=== PATIENT | female | born 1965 | race African-American/Black ===

== ENCOUNTER 2016-12-01 21:43 | Emergency (ER) | payer MEDICARE, OTHER ==
[2016-12-01 21:22] LABS: BASOPHILS 0.5 %; BASOPHILS ABSOLUTE 0.04 10/3/uL (0.0-0.16); EOSINOPHILS 2.2 %; EOSINOPHILS ABSOLUTE 0.17 10/3/uL (0.0-0.53); HEMOGLOBIN 11.1 g/dL (12.0-16.0); IMMATURE GRANULOCYTES 0.3 %; IMMATURE GRANULOCYTES ABSOLUTE 0.02 10/3/uL (0.0-0.11); LYMPHOCYTES ABSOLUTE 3.34 10/3/uL (0.67-4.30); MANUAL DIFF NO %; MEAN CORPUS HGB CONC 34.7 g/dL (32.0-36.0); MEAN CORPUSCULAR HEMOGLOB 31.4 pg (26.0-34.0); MEAN CORPUSCULAR VOLUME 90.7 fL (80-100); MEAN PLATELET VOLUME 8.3 fL (9.2-13.0); MONOCYTES ABSOLUTE 0.62 10/3/uL (0.21-1.20); NEUTROPHILS ABSOLUTE 3.58 10/3/uL (2.02-8.40); PLATELET COUNT 258 10/3/uL (150-400); RBC DISTRIBUTION WIDTH 13.2 % (12.0-16.0); RED CELL COUNT 3.53 10/6/uL (4.0-5.6); WHITE BLOOD CELLS 7.8 10/3/uL (4.5-10.5)
[2016-12-01 21:29] LABS: INTERNATIONAL NORMAL RATI 1.1 UNITS (-); PARTIAL THROMBO TIME 25.1 SEC (22.5-37.2); PROTIME (NOT ORD) 13.8 SEC (12.0-14.5)
[2016-12-01 21:36] LABS: INFLUENZA A SCREEN NEGATIVE (NEGATIVE); INFLUENZA B SCREEN NEGATIVE (NEGATIVE)
[2016-12-01 21:37] LABS: ALBUMIN 4.2 G/DL (3.5-5.0); ALKALINE PHOSPHATASE 64 U/L (45-117); SGOT(AST) 23 U/L (5-40); SGPT(ALT) 52 U/L (5-65); TOTAL BILIRUBIN 0.2 MG/DL (0-1.2); TOTAL PROTEIN 7.4 G/DL (6.0-8.5)
[2016-12-01 21:38] LABS: DIRECT BILIRUBIN < 0.1 MG/DL (0.0-0.4); INDIRECT BILIRUBIN(NOT ORDER) 0.1 MG/DL (0.1-0.9)
[2016-12-01 21:39] LABS: BUN (BLOOD UREA NITROGEN) 11 MG/DL (6-23); CALCIUM, SERUM 8.7 MG/DL (8.5-10.4); CHEST PAIN PROFILE TAT 0 Hrs 21 Mins; CHLORIDE, SERUM 104 MMOL/L (96-112); CO2 (CARBON DIOXIDE) 24 MMOL/L (24-34); CREATININE 0.71 MG/DL (0.55-1.02); GFR AFRICAN AMERICAN 113 ML/MIN (>=60); GFR NON AFRICAN AMERICAN 97 ML/MIN (>=60); GLUCOSE, SERUM 121 MG/DL (60-99); POTASSIUM, SERUM 3.5 MMOL/L (3.5-5.3); SODIUM, SERUM 141 MMOL/L (135-148); TROPONIN I <0.02 NG/ML (<0.05)
[~2016-12-01 21:43] MED LIST: ASAB PO; BENICAR HCT1 TA1 PO; CYMBALTA60 PO; DIL2TAB PO; FLEX PO; GLUCOPHAGE1000 MG PO; GLUCPH PO; HYDROCHLOROT25 MG PO; JOLIVETTE0.35 MG PO; KLONO2 PO; LIOR10 PO; NEUR400 PO; NORV5 PO; PERCOCET1 TA2 PO; PERCOCET1 TA4 PO; PRILOSEC40 MG PO; TRAZODONE300 MG PO; V5 PO; VITAMIN D31000 UNIT PO; VOLT50 PO
[2016-12-10] MEDS ORDERED: LYRICA75 PO (14:23)
[2016-12-10] MEDS ORDERED: ZANAFLEX 4 MG TA4 MG PO (14:23)
[2016-12-10] MEDS ORDERED: CRESTOR20 MG PO (14:26)
[2016-12-10] MEDS ORDERED: PERCOCET 10/3251 TAB PO (14:27)
[2017-02-09] MEDS ORDERED: CYMBALTA30 PO (22:38)
[2017-02-09] MEDS ORDERED: COZ25 PO (22:40)
[2017-02-09] MEDS ORDERED: OXYCOD PO (22:42)
[2017-02-09] MEDS ORDERED: V2 PO (22:43)
[2017-02-09] MEDS ORDERED: VICTOZA18 MG/3 ML SC (22:44)
[2017-02-09] MEDS ORDERED: LIOR10 PO (22:47)
== END 2016-12-01 23:01 | disposition home or self-care (01) ==
LOC: ER 21:43
PROVIDERS: Emergency Medicine; Specialist
DX: R52 Pain, unspecified (principal); I10 Essential (primary) hypertension; K21.9 Gastro-esophageal reflux disease without esophagitis; F41.9 Anxiety disorder, unspecified; E11.9 Type 2 diabetes mellitus without complications; Z79.899 Other long term (current) drug therapy; Z79.82 Long term (current) use of aspirin
CPT/HCPCS: 71020; 80048; 80076; 82962; 83690; 83735; 84484; 85025; 85610; 85652; 85730; 87804; 93005; 96372; 99284; A9270-GY; J1885

== ENCOUNTER 2016-12-11 11:40 | Inpatient (IN) | payer MEDICARE, OTHER ==
--- NOTE | ~2016-12-11 | CN ---
Consultation Report [place] [id number] [place]. [address] NAME: WILBERT FREEMAN : 61 STATUS : ADM IN PAT#: [id number] AGE: 51 ADM/REG DATE : 12/13/16 MR#: [id number] REPORT SERV DATE: 12/14/16 DICTATED BY: ODALYS DRAPER DATE: 12/14/16 REPORT STATUS : Draft TRANSCRIBED BY: MARLYN DATE: 12/14/16 DATE OF CONSULTATION: Dear Dr. Martinez: Thank you for requesting my opinion regarding evaluation and management of Ms. Wilbert Freeman's hypoxic hypercapnic respiratory failure. Ms. Freeman is a 51-year-old female with a significant past medical history of obstructive sleep apnea, diabetes, hypertension, anxiety, history bronchitis, depression, fibromyalgia, GERD, nausea, osteoarthritis, who underwent C5-C7 hardware removal of C5 corpectomy with anterior extradural decompression, anterior interbody arthrodesis, C4-C5, C5-C6, anterior instrumentation, segmental, C4-C7, allograft substitute, bone marrow aspirate and local autograft and placement of prosthetic devices and C4-C5, C5-C6, by Dr. Beni Trejo. Her postoperative course was complicated with significant pain. She required q.4 hours of oxycodone and eventually became hypercapnic, presumably from respiratory depression due to oxycodone in the setting of renal dysfunction. The patient received at least one dose of Narcan with significant improvement in mental status. Her BNP is negative. Most recent ABG was 7.27, PaCO2 of 52, PO2 of 82. I am unable to obtain any kind of history from her due to her altered mental status. She is currently on BiPAP 08/12. REVIEW OF SYSTEMS: Unable to obtain. PAST MEDICAL HISTORY: 1. Left upper extremity radiculopathy. 2. C5-C6, C6-C7, spondylosis with stenosis. 3. Diabetes. 4. Hypertension. 5. Anxiety. 6. History of bronchitis. 7. Depression. 8. Fibromyalgia. 9. GERD. 10.Osteoarthritis, left rotator cuff repair in 2009. 11.Tubal ligation, 1986. 12.Total abdominal hysterectomy in 2012. ALLERGIES: NO KNOWN DRUG ALLERGIES. HOME MEDICATIONS: Reviewed and located in the paper chart. SOCIAL HISTORY: The patient is . She is a lifelong nonsmoker. She has no history of alcohol abuse. She has five children. Consultation Report [address] [place]. [address] NAME: WILBERT FREEMAN : 61 STATUS : ADM IN [facility]#: [id number] AGE: 51 ADM/REG DATE : 12/13/16 MR#: [id number] REPORT SERV DATE: 12/14/16 DICTATED BY: ODALYS DRAPER DATE: 12/14/16 REPORT STATUS : Draft TRANSCRIBED BY: MARLYN DATE: 12/14/16 FAMILY HISTORY: Myocardial infarctions, stroke. PHYSICAL EXAMINATION: VITAL SIGNS: Afebrile, 100.9, pulse of 100, respiratory rate of 20, 4 L, blood pressure 113/57, BMI 34. GENERAL: Chronically ill-appearing female, lethargic, minimally responsive for verbal stimuli and obvious respiratory failure due to likely over sedation. HEENT: Normocephalic, atraumatic. Pupils are equal, round, and reactive to light and accommodation. Posterior oropharynx is clear. NECK: No JVD. No LAD. Trachea midline. CARDIOVASCULAR: Regular rate and rhythm. S1, S2 present. LUNGS: Coarse bilateral breath sounds. End-expiratory wheezes not noted. ABDOMEN: Nontender, nondistended, protuberant. EXTREMITIES: No clubbing, cyanosis, or edema. SKIN: No new rashes, lesions, or ulcers. PSYCHIATRIC: Alert and oriented x3. Appropriate mood and affect. Appropriate insight and judgment. NEUROLOGIC: 5/5 strength in upper and lower extremities. Cranial nerves II through XII intact. Gait not tested. DTRs not performed. IMAGING: Chest x-ray performed on 12/14/2016 was personally reviewed by me and I agree with the following interpretation, bibasilar atelectasis and mild venous congestion. LABORATORY DATA: White count of 10, glucose of 187, creatinine as high as 1.42, now down to 1.09. pH is 7.27, PaCO2 of 62, PaO2 of 82 on 08/12. UA is negative, just trace leukocyte esterase. ASSESSMENT AND PLAN: Ms. Wilbert Freeman is a pleasant 51-year-old female, status post cervical spinal surgery. Her postoperative course has been complicated by hypoxic and hypercapnic respiratory failure, requiring continuous BiPAP. This patient received multiple doses of oxycodone until she became obtunded. As per the nurse, she had complete normalization of her mental status as soon as she received one dose of Narcan. A summary of my recommendations are as follows: 1. Aspiration precautions. 2. Head of bed greater than 30 degrees. 3. Repeat BiPAP 23/01, backup rate of 12. Repeat ABG. 4. Narcan drip. 5. Case discussed with Dr. Martinez. Thank you for allowing me to participate in Ms. Freeman's care. Consultation Report [address] [address] NAME: WILBERT FREEMAN : 61 STATUS : ADM IN PAT#: [id number] AGE: 51 ADM/REG DATE : 12/13/16 MR#: [id number] REPORT SERV DATE: 12/14/16 DICTATED BY: ODALYS DRAPER DATE: 12/14/16 REPORT STATUS : Draft TRANSCRIBED BY: MARLYN DATE: 12/14/16 GAYLA/MARLYN Odalys Draper M.D. / [id number] CC: Srinivasan Merino II, M.D. Froilan B. Joves, MD
--- NOTE | ~2016-12-11 | DS ---
Discharge Summary [place] [id number] [place]. [address] NAME: MARTHA GONZALEZ : 61 STATUS : DIS IN PAT#: [id number] AGE: 51 ADM/REG DATE : 12/13/16 MR#: [id number] REPORT SERV DATE: 12/22/16 DICTATED BY: HOLLIS TREJO II DATE: 12/21/16 REPORT STATUS : Draft TRANSCRIBED BY: MARLYN DATE: 12/21/16 Data Collection from hospitalization DISCHARGE DIAGNOSES: 1. 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 2. C4-5 mild spondylolisthesis with angular kyphosis. 3. C5-6 and C4-5 instability. 4. Anxiety and depression. 5. Diabetes mellitus. 6. Fibromyalgia. 7. Gastroesophageal reflux disease. 8. Hypertension. 9. Osteoarthritis. 10.Seasonal allergic conjunctivitis. CONSULTATIONS: Dr. Odlays Villatoro. Dr. Celeste Mckinney. PROCEDURES PERFORMED: C5-7 hardware removal, C5 corpectomy with anterior extradural decompression, anterior interbody arthrodesis C4-5 and C5-6, anterior instrumentation segmental C4-C7, use of allograft substitute, bone marrow aspirate, and use of local autograft, use of a microscope, placement of prosthetic devices C4-5 and C5-6, 12/11/2016. PATHOLOGY: Vertebral bone and soft tissue, cervical spine, orthopedic hardware, foreign body response; see description. Skin and subcutaneous tissue scar with foreign body response. MEDICATIONS: Prilosec 40 mg every morning, Zanaflex 4 mg at bedtime, trazodone 300 mg at bedtime, Voltaren 50 mg three times daily, Glucophage 1000 mg with breakfast and supper, aspirin 81 mg daily, Norvasc 5 mg every morning, Benicar one daily, Lyrica 50 mg three times daily, Crestor 20 mg every morning, Percocet 10/325 one every six hours as needed. CONDITION AT DISCHARGE: Upon discharge, she did appear to be doing well and had no complaints. DISPOSITION: She had been discharged home to continue an 1800-calorie ADA diet with activity as discussed. She was to follow up with Dr. Danilo Luque on 01/01/2017, follow up with myself as directed. HOSPITAL COURSE: This 51-year-old female had been complaining of cervical-related symptoms. Her symptoms were located in the neck with radiation into the bilateral traps. She reported they were last seen six weeks prior to admission. When asked about the severity level of her symptoms, she reported a pain level of 8 on a 0-10 scale. Her pain and symptoms had not changed since her last office visit. She admitted to the following factors that modified her symptoms; lying down, lying on the left side, prolonged sitting up worsened her pain and symptoms, [id number] muscle cream temporarily decreased the severity of her pain and symptoms. At the time of admission, she had been taking Dilaudid, baclofen, gabapentin, diclofenac to treat her pain and symptoms. She stated that she still had not started physical therapy due to her pain and the cost of each visit. She was now admitted for surgery and further treatment. Upon admission to the hospital, she was taken to the Discharge Summary [address] [address] NAME: MARTHA GONZALEZ : 61 STATUS : DIS IN PAT#: [id number] AGE: 51 ADM/REG DATE : 12/13/16 MR#: [id number] REPORT SERV DATE: 12/22/16 DICTATED BY: HOLLIS TREJO II DATE: 12/21/16 REPORT STATUS : Draft TRANSCRIBED BY: MARLYN DATE: 12/21/16 operating room, where she did undergo the above procedure. She had tolerated this well and was transferred to the recovery room. She was initially admitted on 12/11/2016 for surgery and changed to inpatient status on 12/13/2016. On postop day #1, she had complaints of some difficulty swallowing and with a cough. She was afebrile, and her vital signs were stable. She had been seen by the hospitalist and was placed on sliding scale insulin level 2 as well as metformin. She did appear to be stable from an orthopedic standpoint. On postop day #2, she was requesting discharge, however, was still complaining of pain as well as a sore throat and did still have low blood pressure. On postop day #2, her ARB, Norvasc, and HCT were discontinued. Discharge was also placed on hold. Her blood pressure was noted to be at 90/54. She had also been seen later that same day by Niels Underwood as her blood pressure dropped to 73/42. She did have a Gorman catheter placed. She had been transferred to the intensive care unit secondary to her hypotension and her acute hypoxemic hypercarbic respiratory failure. She had also been evaluated by Dr. Odalys Villatoro, who had noted that she had received at least one dose of Narcan with significant improvement in her mental status. He did note that her BNP was negative. He noted that she had received multiple doses of oxycodone and then became obtunded, however, after one dose of Narcan, she had complete normalization of her mental status. She had been placed on Narcan drip as well as aspiration precautions. On 12/15/2016, she was noted to be much more awake and was much improved. She had been placed on nasal cannula oxygen with BiPAP as needed and at bedtime. She was also begun on the incentive spirometer. On 12/16/2016, she did continue to do well and had been evaluated by Physical Therapy. She was afebrile, and her vital signs were stable. She had remained in stable condition and was noted to be feeling better. She had no complaints of shortness of breath noted and was then discharged with the above instructions. Information collected by: Kelvin Sainz. I submit the above information as my discharge summary. MINA/MARLYN Hollis Trejo II, M.D. / [id number] CC: Srinivasan Merino II, M.D.
--- NOTE | ~2016-12-11 | OP ---
Record Of Operation [facility] [address] [place]. [address] NAME: MARTHA GONZALEZ : 61 STATUS : ADM Hira PAT#: [id number] AGE: 51 ADM/REG DATE : 12/11/16 MR#: [id number] REPORT SERV DATE: 12/13/16 DICTATED BY: HOLLIS TREJO II DATE: 12/13/16 REPORT STATUS : Draft TRANSCRIBED BY: MARLYN DATE: 12/13/16 DATE OF PROCEDURE: 12/11/2016 PREOPERATIVE DIAGNOSES: 1. Nonunion, C5-6 with plate migration. 2. C4-5 mild spondylolisthesis with angular kyphosis. 3. C5-6, C4-5 instability. POSTOPERATIVE DIAGNOSES: 1. Nonunion, C5-6 with plate migration. 2. C4-5 mild spondylolisthesis with angular kyphosis. 3. C5-6, C4-5 instability. PROCEDURES: 1. C5-7 hardware removal. 2. C5 corpectomy with anterior extradural decompression. 3. Anterior interbody arthrodesis. C4-5, C5-6. 4. Anterior instrumentation, segmental, C4-C7. 5. Use of allograft substitute, bone marrow aspirate, and use of local autograft. 6. Use of the microscope. 7. Placement of prosthetic devices, C4-5, C5-6. SURGEON: Dr. Hollis Trejo M.D. FLUIDS: 1700 mL LR. ESTIMATED BLOOD LOSS: 40 mL. DRAIN: One drain. COMPLICATIONS: None. IMPLANTS: Globus. PREOPERATIVE HISTORY: This is a friendly 51-year-old female, who had C5-7 ACDF performed in late 2015. She initially did well, but is now reporting increasing severe neck pain with radiating arm pain. She was found to have unfortunately obvious loss of fixation at C5 including partial loss of the vertebral body of C5 likely from the erosion of bone from the loose plate. There was also angular kyphosis of approximately 30 degrees at C4-5, which appeared to be more degenerative related, but I also felt likely due to the bone loss of C5. C6-7 appeared to be doing okay in terms of fixation. I discussed with her the options of nonoperative care and essentially observing it, but given her severe pain, she wanted something done to increase her quality of life. I discussed with her revision surgery and she wished to proceed as quickly as possible. DESCRIPTION OF PROCEDURE: After informed consent was obtained, the patient was brought to Record Of Operation [address] [place]. [address] NAME: MARTHA GONZALEZ : 61 STATUS : ADM Hira PAT#: [id number] AGE: 51 ADM/REG DATE : 12/11/16 MR#: [id number] REPORT SERV DATE: 12/13/16 DICTATED BY: HOLLIS TREJO II DATE: 12/13/16 REPORT STATUS : Draft TRANSCRIBED BY: MARLYN DATE: 12/13/16 the operating room at her request, and general anesthesia was achieved. She was placed in the supine position, and the neck and iliac crest were prepped and draped in a sterile fashion. 5 mL of bone marrow was aspirated from the iliac crest followed by a right-sided longitudinal incision. The interval was explored. The deep cervical fascia was incised. The plate was identified and removed from C5-7. The screws were obviously very loose at C5 with unfortunately significant bone loss of C5 from the screw cut out as well as the eroding into the cranial portion of the C5. At this point, the screws also appeared to be moderately loose at C7. At this point, we examined the interbody spacer at C5-6, and it was clearly loose. There was no development of mature bone at this level. C6-7; however, did not demonstrate evidence of loosening of the interbody space. There appeared to be some reasonable incorporation of bone. At this point, the Lisbon pins were placed into C6 and C4. Distraction was performed and the diskectomy was initiated at C4-5. The disk was now removed with the pituitary rongeurs, Kerrison rongeurs, and the curettes. The endplates were denuded of their cartilage with the curettes and the high-speed sasha. The C4 endplate was found to have reasonable bone quality. The posterior foraminal osteophytes were removed at C4-5. The C6 endplate was now examined and fibrous tissue was removed. Punctate bleeding bone was now identified on both the C4 and C6 endplates. Next, the corpectomy was now initiated with the high-speed sasha and the double action rongeurs. The local autograft was harvested for later use. Under microscopic visualization, the corpectomy was further completed and the anterior extradural decompression was achieved, and the posterior longitudinal ligament was removed. The anterior canal was now well-decompressed. Next, the prosthetic device was now chosen and placed at C4-5 and C5-6. At this point, the corpectomy prosthetic device was well placed at C4-5 and C5-6, and confirmed radiographically. At this point, the anterior fixation device was chosen and placed from C4-C7. This was a separate plate and screw construct. Multiplanar imaging confirmed acceptable placement of the implants. We did choose to plate over C6-7 as it was not fully fused at this point. At this point, a deep drain was placed secondary to mild cancellous bone bleeding. The patient was then extubated following standard closure and the patient was transferred to the PACU in stable condition. NATE/MARLYN Hollis Trejo Record Of Operation [address] [address] NAME: MARTHA GONZALEZ : 61 STATUS : ADM Hira PAT#: [id number] AGE: 51 ADM/REG DATE : 12/11/16 MR#: [id number] REPORT SERV DATE: 12/13/16 DICTATED BY: HOLLIS TREJO II DATE: 12/13/16 REPORT STATUS : Draft TRANSCRIBED BY: MARLYN DATE: 12/13/16 Srinivasan SEVERINO / [id number] CC: Srinivasan Merino II, M.D. Sadiq Sohani, M.D.
[~2016-12-11 11:40] MED LIST changes: +CRESTOR20 MG PO; +LYRICA75 PO; +PERCOCET 10/3251 TAB PO; +ZANAFLEX 4 MG TA4 MG PO
[2016-12-11 12:06] LABS: HEMATOCRIT 34.2 % (36.0-48.0); HEMOGLOBIN 11.8 g/dL (12.0-16.0)
[2016-12-11 12:18] LABS: CALCIUM, SERUM 8.7 MG/DL (8.5-10.4); CHLORIDE, SERUM 100 MMOL/L (96-112); CO2 (CARBON DIOXIDE) 25 MMOL/L (24-34); CREATININE 0.61 MG/DL (0.55-1.02); GFR AFRICAN AMERICAN 120 ML/MIN (>=60); GFR NON AFRICAN AMERICAN 104 ML/MIN (>=60); POTASSIUM, SERUM 3.9 MMOL/L (3.5-5.3); SODIUM, SERUM 136 MMOL/L (135-148)
[2016-12-11 12:19] LABS: BUN (BLOOD UREA NITROGEN) 5 MG/DL (6-23); GLUCOSE, SERUM 175 MG/DL (60-99)
[2016-12-13 05:18] LABS: BASOPHILS 0.2 %; BASOPHILS ABSOLUTE 0.02 10/3/uL (0.0-0.16); EOSINOPHILS 0.7 %; EOSINOPHILS ABSOLUTE 0.08 10/3/uL (0.0-0.53); HEMOGLOBIN 10.3 g/dL (12.0-16.0); IMMATURE GRANULOCYTES 0.3 %; IMMATURE GRANULOCYTES ABSOLUTE 0.03 10/3/uL (0.0-0.11); LYMPHOCYTES 25.2 %; LYMPHOCYTES ABSOLUTE 2.73 10/3/uL (0.67-4.30); MEAN CORPUS HGB CONC 33.7 g/dL (32.0-36.0); MEAN CORPUSCULAR HEMOGLOB 31.7 pg (26.0-34.0); MEAN PLATELET VOLUME 9.2 fL (9.2-13.0); MONOCYTES 6.7 %; MONOCYTES ABSOLUTE 0.72 10/3/uL (0.21-1.20); NEUTROPHILS 66.9 %; NEUTROPHILS ABSOLUTE 7.24 10/3/uL (2.02-8.40); PLATELET COUNT 237 10/3/uL (150-400); RBC DISTRIBUTION WIDTH 13.3 % (12.0-16.0); RED CELL COUNT 3.25 10/6/uL (4.0-5.6); WHITE BLOOD CELLS 10.8 10/3/uL (4.5-10.5)
[2016-12-13 05:23] LABS: HEMATOCRIT 30.6 % (36.0-48.0); MANUAL DIFF NO %; MEAN CORPUSCULAR VOLUME 94.2 fL (80-100)
[2016-12-13 05:27] LABS: CALCIUM, SERUM 8.8 MG/DL (8.5-10.4); CHLORIDE, SERUM 97 MMOL/L (96-112); CO2 (CARBON DIOXIDE) 29 MMOL/L (24-34); GFR AFRICAN AMERICAN 49 ML/MIN (>=60); GFR NON AFRICAN AMERICAN 42 ML/MIN (>=60); GLUCOSE, SERUM 207 MG/DL (60-99); POTASSIUM, SERUM 3.8 MMOL/L (3.5-5.3); SODIUM, SERUM 137 MMOL/L (135-148)
[2016-12-13 05:32] LABS: BUN (BLOOD UREA NITROGEN) 13 MG/DL (6-23); CREATININE 1.42 MG/DL (0.55-1.02)
[2016-12-14 03:19] LABS: BASOPHILS 0.2 %; BASOPHILS ABSOLUTE 0.02 10/3/uL (0.0-0.16); EOSINOPHILS 1.8 %; EOSINOPHILS ABSOLUTE 0.18 10/3/uL (0.0-0.53); HEMATOCRIT 32.7 % (36.0-48.0); HEMOGLOBIN 10.5 g/dL (12.0-16.0); IMMATURE GRANULOCYTES 0.4 %; IMMATURE GRANULOCYTES ABSOLUTE 0.04 10/3/uL (0.0-0.11); LYMPHOCYTES 31.5 %; LYMPHOCYTES ABSOLUTE 3.17 10/3/uL (0.67-4.30); MANUAL DIFF NO %; MEAN CORPUS HGB CONC 32.1 g/dL (32.0-36.0); MEAN CORPUSCULAR HEMOGLOB 31.3 pg (26.0-34.0); MEAN CORPUSCULAR VOLUME 97.3 fL (80-100); MEAN PLATELET VOLUME 9.1 fL (9.2-13.0); MONOCYTES 8.5 %; MONOCYTES ABSOLUTE 0.86 10/3/uL (0.21-1.20); NEUTROPHILS 57.6 %; PLATELET COUNT 226 10/3/uL (150-400); RBC DISTRIBUTION WIDTH 13.6 % (12.0-16.0); RED CELL COUNT 3.36 10/6/uL (4.0-5.6); WHITE BLOOD CELLS 10.1 10/3/uL (4.5-10.5)
[2016-12-14 03:36] LABS: BUN (BLOOD UREA NITROGEN) 14 MG/DL (6-23); CALCIUM, SERUM 7.9 MG/DL (8.5-10.4); CHLORIDE, SERUM 103 MMOL/L (96-112); CO2 (CARBON DIOXIDE) 29 MMOL/L (24-34); CREATININE 1.28 MG/DL (0.55-1.02); GFR AFRICAN AMERICAN 55 ML/MIN (>=60); GFR NON AFRICAN AMERICAN 48 ML/MIN (>=60); GLUCOSE, SERUM 210 MG/DL (60-99); POTASSIUM, SERUM 4.3 MMOL/L (3.5-5.3); SODIUM, SERUM 141 MMOL/L (135-148)
[2016-12-14 05:34] LABS: ASCORBIC ACID (UR NOT ORDER) NEG (NEG); BILIRUBIN, URINE NEGATIVE (NEG); KETONE, URINE NEGATIVE (NEG); LEUKOCYTE ESTERASE(NOT OR TRACE (NEG); WBC (NOT ORDERED) (RFLEX) 5 (0-5)
[2016-12-14 05:48] LABS: CREATININE, URINE 49.6 MG/DL
[2016-12-14 09:21] LABS: BUN (BLOOD UREA NITROGEN) 15 MG/DL (6-23); CALCIUM, SERUM 7.5 MG/DL (8.5-10.4); CHLORIDE, SERUM 105 MMOL/L (96-112); CO2 (CARBON DIOXIDE) 27 MMOL/L (24-34); CREATININE 1.09 MG/DL (0.55-1.02); GFR AFRICAN AMERICAN 67 ML/MIN (>=60); GFR NON AFRICAN AMERICAN 58 ML/MIN (>=60); GLUCOSE, SERUM 208 MG/DL (60-99); SGOT(AST) 35 U/L (5-40); SGPT(ALT) 47 U/L (5-65); SODIUM, SERUM 140 MMOL/L (135-148); TOTAL BILIRUBIN 0.3 MG/DL (0-1.2); TOTAL PROTEIN 6.2 G/DL (6.0-8.5)
[2016-12-14 09:22] LABS: A/G RATIO 1.1 (0.7-1.9); ALBUMIN 3.3 G/DL (3.5-5.0); ALKALINE PHOSPHATASE 79 U/L (45-117); GLOBULIN 2.9 G/DL (2.5-4.1)
[2016-12-14 09:22] LABS: CARBOXYHEMOGLOBIN 0.3 % (0-3); HCO3 (ACTUAL BICARBONATE) 27.7 MEQ/L (23-27); HEMOBLOGIN CONTENT 9.8 G/DL (12-16); INSTRUMENT SERIAL # 8083; METHEMOGLOBIN 0.2 % (0-3); O2 CONTENT 13.1 VOL% (18-24); PCO2 (CO2 TENSION) 62 MMHG (35-45); PO2 (O2 TENSION) 82 MMHG (79-93); SAMPLE Arterial; pH 7.27 (7.37-7.43)
[2016-12-14 14:47] LABS: BE (BASE EXCESS) 2.3 MEQ/L (0 +/- 2.5); HCO3 (ACTUAL BICARBONATE) 29.9 MEQ/L (23-27); HEMOBLOGIN CONTENT 9.5 G/DL (12-16); INSTRUMENT SERIAL # 8083; METHEMOGLOBIN 0.1 % (0-3); O2 CONTENT 12.9 VOL% (18-24); PCO2 (CO2 TENSION) 64 MMHG (35-45); PO2 (O2 TENSION) 94 MMHG (79-93); SAMPLE Arterial; pH 7.29 (7.37-7.43)
[2016-12-14 18:42] LABS: ASCORBIC ACID (UR NOT ORDER) NEG (NEG); BILIRUBIN, URINE NEGATIVE (NEG); KETONE, URINE NEGATIVE (NEG); LEUKOCYTE ESTERASE(NOT OR SMALL (NEG); WBC (NOT ORDERED) (RFLEX) 30 (0-5)
[2016-12-15 04:33] LABS: BASOPHILS 0.3 %; BASOPHILS ABSOLUTE 0.02 10/3/uL (0.0-0.16); EOSINOPHILS 2.5 %; EOSINOPHILS ABSOLUTE 0.16 10/3/uL (0.0-0.53); HEMOGLOBIN 8.7 g/dL (12.0-16.0); IMMATURE GRANULOCYTES 0.2 %; IMMATURE GRANULOCYTES ABSOLUTE 0.01 10/3/uL (0.0-0.11); LYMPHOCYTES ABSOLUTE 2.29 10/3/uL (0.67-4.30); MEAN CORPUS HGB CONC 32.7 g/dL (32.0-36.0); MEAN CORPUSCULAR HEMOGLOB 31.6 pg (26.0-34.0); MEAN CORPUSCULAR VOLUME 96.7 fL (80-100); MEAN PLATELET VOLUME 8.7 fL (9.2-13.0); MONOCYTES 8.2 %; MONOCYTES ABSOLUTE 0.52 10/3/uL (0.21-1.20); NEUTROPHILS 52.8 %; NEUTROPHILS ABSOLUTE 3.36 10/3/uL (2.02-8.40); PLATELET COUNT 160 10/3/uL (150-400); RBC DISTRIBUTION WIDTH 13.5 % (12.0-16.0); RED CELL COUNT 2.75 10/6/uL (4.0-5.6); WHITE BLOOD CELLS 6.4 10/3/uL (4.5-10.5)
[2016-12-15 04:35] LABS: HEMATOCRIT 26.6 % (36.0-48.0); MANUAL DIFF NO %
[2016-12-15 04:48] LABS: A/G RATIO 1.4 (0.7-1.9); ALBUMIN 3.9 G/DL (3.5-5.0); CALCIUM, SERUM 8.3 MG/DL (8.5-10.4); CHLORIDE, SERUM 105 MMOL/L (96-112); CO2 (CARBON DIOXIDE) 31 MMOL/L (24-34); GLOBULIN 2.7 G/DL (2.5-4.1); GLUCOSE, SERUM 182 MG/DL (60-99); POTASSIUM, SERUM 3.9 MMOL/L (3.5-5.3); SGOT(AST) 139 U/L (5-40); SGPT(ALT) 72 U/L (5-65); SODIUM, SERUM 144 MMOL/L (135-148); TOTAL BILIRUBIN 0.7 MG/DL (0-1.2); TOTAL PROTEIN 6.6 G/DL (6.0-8.5)
[2016-12-15 04:51] LABS: ALKALINE PHOSPHATASE 117 U/L (45-117); BUN (BLOOD UREA NITROGEN) 6 MG/DL (6-23); GFR AFRICAN AMERICAN 128 ML/MIN (>=60); GFR NON AFRICAN AMERICAN 111 ML/MIN (>=60); PHOSPHORUS, SERUM 2.2 MG/DL (2.5-4.5)
[2016-12-15 05:06] LABS: BE (BASE EXCESS) 5.2 MEQ/L (0 +/- 2.5); BIPAP 18/5 cm.H2O; CARBOXYHEMOGLOBIN 0.9 % (0-3); HCO3 (ACTUAL BICARBONATE) 31.2 MEQ/L (23-27); HEMOBLOGIN CONTENT 8.8 G/DL (12-16); INSTRUMENT SERIAL # 8083; METHEMOGLOBIN 0.1 % (0-3); O2 CONTENT 12.1 VOL% (18-24); PCO2 (CO2 TENSION) 55 MMHG (35-45); PO2 (O2 TENSION) 104 MMHG (79-93); SAMPLE Arterial; pH 7.38 (7.37-7.43)
[2016-12-16 04:40] LABS: BASOPHILS 0.3 %; BASOPHILS ABSOLUTE 0.03 10/3/uL (0.0-0.16); EOSINOPHILS 0.8 %; EOSINOPHILS ABSOLUTE 0.08 10/3/uL (0.0-0.53); HEMOGLOBIN 10.1 g/dL (12.0-16.0); IMMATURE GRANULOCYTES 0.2 %; IMMATURE GRANULOCYTES ABSOLUTE 0.02 10/3/uL (0.0-0.11); LYMPHOCYTES 11.1 %; LYMPHOCYTES ABSOLUTE 1.14 10/3/uL (0.67-4.30); MEAN CORPUS HGB CONC 33.2 g/dL (32.0-36.0); MEAN CORPUSCULAR HEMOGLOB 31.2 pg (26.0-34.0); MEAN CORPUSCULAR VOLUME 93.8 fL (80-100); MEAN PLATELET VOLUME 9.3 fL (9.2-13.0); MONOCYTES ABSOLUTE 0.82 10/3/uL (0.21-1.20); NEUTROPHILS 79.6 %; NEUTROPHILS ABSOLUTE 8.19 10/3/uL (2.02-8.40); RBC DISTRIBUTION WIDTH 12.6 % (12.0-16.0); RED CELL COUNT 3.24 10/6/uL (4.0-5.6)
[2016-12-16 04:44] LABS: HEMATOCRIT 30.4 % (36.0-48.0); MANUAL DIFF NO %; PLATELET COUNT 223 10/3/uL (150-400); WHITE BLOOD CELLS 10.3 10/3/uL (4.5-10.5)
[2016-12-16 04:58] LABS: A/G RATIO 1.6 (0.7-1.9); ALBUMIN 4.6 G/DL (3.5-5.0); BUN (BLOOD UREA NITROGEN) 8 MG/DL (6-23); CHLORIDE, SERUM 102 MMOL/L (96-112); CO2 (CARBON DIOXIDE) 32 MMOL/L (24-34); CREATININE 0.65 MG/DL (0.55-1.02); GFR AFRICAN AMERICAN 117 ML/MIN (>=60); GFR NON AFRICAN AMERICAN 101 ML/MIN (>=60); GLOBULIN 2.9 G/DL (2.5-4.1); POTASSIUM, SERUM 4.1 MMOL/L (3.5-5.3); SGOT(AST) 351 U/L (5-40); SGPT(ALT) 185 U/L (5-65); SODIUM, SERUM 141 MMOL/L (135-148); TOTAL PROTEIN 7.5 G/DL (6.0-8.5)
[2016-12-16 05:00] LABS: ALKALINE PHOSPHATASE 151 U/L (45-117); CALCIUM, SERUM 9.7 MG/DL (8.5-10.4); GLUCOSE, SERUM 264 MG/DL (60-99); TOTAL BILIRUBIN 1.3 MG/DL (0-1.2)
[2016-12-17 05:07] LABS: BASOPHILS 0.1 %; BASOPHILS ABSOLUTE 0.01 10/3/uL (0.0-0.16); EOSINOPHILS 3.9 %; EOSINOPHILS ABSOLUTE 0.28 10/3/uL (0.0-0.53); HEMATOCRIT 27.4 % (36.0-48.0); HEMOGLOBIN 9.3 g/dL (12.0-16.0); IMMATURE GRANULOCYTES 0.1 %; IMMATURE GRANULOCYTES ABSOLUTE 0.01 10/3/uL (0.0-0.11); LYMPHOCYTES 30.4 %; MEAN CORPUS HGB CONC 33.9 g/dL (32.0-36.0); MEAN CORPUSCULAR HEMOGLOB 31.5 pg (26.0-34.0); MEAN CORPUSCULAR VOLUME 92.9 fL (80-100); MEAN PLATELET VOLUME 9.1 fL (9.2-13.0); MONOCYTES 8.6 %; MONOCYTES ABSOLUTE 0.62 10/3/uL (0.21-1.20); NEUTROPHILS 56.9 %; NEUTROPHILS ABSOLUTE 4.12 10/3/uL (2.02-8.40); PLATELET COUNT 216 10/3/uL (150-400); RBC DISTRIBUTION WIDTH 12.7 % (12.0-16.0); RED CELL COUNT 2.95 10/6/uL (4.0-5.6); WHITE BLOOD CELLS 7.2 10/3/uL (4.5-10.5)
[2016-12-17 05:10] LABS: MANUAL DIFF NO %
[2016-12-17 05:24] LABS: A/G RATIO 1.5 (0.7-1.9); ALBUMIN 4.2 G/DL (3.5-5.0); BUN (BLOOD UREA NITROGEN) 6 MG/DL (6-23); CHLORIDE, SERUM 97 MMOL/L (96-112); CO2 (CARBON DIOXIDE) 31 MMOL/L (24-34); CREATININE 0.64 MG/DL (0.55-1.02); GFR AFRICAN AMERICAN 118 ML/MIN (>=60); GFR NON AFRICAN AMERICAN 102 ML/MIN (>=60); GLOBULIN 2.8 G/DL (2.5-4.1); PHOSPHORUS, SERUM 2.6 MG/DL (2.5-4.5); POTASSIUM, SERUM 3.3 MMOL/L (3.5-5.3); SGOT(AST) 73 U/L (5-40); SGPT(ALT) 122 U/L (5-65); SODIUM, SERUM 137 MMOL/L (135-148)
[2016-12-17 05:38] LABS: ALKALINE PHOSPHATASE 114 U/L (45-117); CALCIUM, SERUM 8.6 MG/DL (8.5-10.4); GLUCOSE, SERUM 196 MG/DL (60-99); TOTAL BILIRUBIN 0.6 MG/DL (0-1.2)
[2016-12-17] MEDS ORDERED: MSCONT15 PO (16:21)
[2016-12-17] MEDS ORDERED: V5 PO (16:21)
[2016-12-17] MEDS ORDERED: ROXICODONE15 MG PO (16:29)
[2017-02-09] MEDS ORDERED: CYMBALTA30 PO (22:38)
[2017-02-09] MEDS ORDERED: COZ25 PO (22:40)
[2017-02-09] MEDS ORDERED: OXYCOD PO (22:42)
[2017-02-09] MEDS ORDERED: V2 PO (22:43)
[2017-02-09] MEDS ORDERED: VICTOZA18 MG/3 ML SC (22:44)
[2017-02-09] MEDS ORDERED: LIOR10 PO (22:47)
== END 2016-12-17 18:32 | disposition home or self-care (01) | DRG 471 ==
LOC: SDC 11:40 → 3SO 18:56 → IMCU 12-14 08:09 → 1SO 12-16 16:14
PROVIDERS: Hospitalist; Internal Medicine; Nurse Practitioner Family; Orthopaedic Surgery
PROC: 07DR3ZZ Extraction of Iliac Bone Marrow, Percutaneous Approach (ICD-10-PCS; 2016-12-11)
PROC: 4A11X4G Monitoring of Peripheral Nervous Electrical Activity, Intraoperative, External Approach (ICD-10-PCS; 2016-12-11)
PROC: 0RG20A0 Fusion of 2 or more Cervical Vertebral Joints with Interbody Fusion Device, Anterior Approach, Anterior Column, Open Approach (ICD-10-PCS; principal; 2016-12-11 13:45)
PROC: 0RP10AZ Removal of Interbody Fusion Device from Cervical Vertebral Joint, Open Approach (ICD-10-PCS; 2016-12-11 13:45)
PROC: 5A09457 Assistance with Respiratory Ventilation, 24-96 Consecutive Hours, Continuous Positive Airway Pressure (ICD-10-PCS; 2016-12-14)
DX: M96.0 Pseudarthrosis after fusion or arthrodesis (principal); J96.01 Acute respiratory failure with hypoxia; J96.02 Acute respiratory failure with hypercapnia; J81.1 Chronic pulmonary edema; M43.12 Spondylolisthesis, cervical region; I95.81 Postprocedural hypotension; Y83.8 Other surgical procedures as the cause of abnormal reaction of the patient, or of later complication, without mention of misadventure at the time of the procedure; G47.33 Obstructive sleep apnea (adult) (pediatric); I10 Essential (primary) hypertension; E66.9 Obesity, unspecified; Z68.34 Body mass index [BMI] 34.0-34.9, adult; E78.5 Hyperlipidemia, unspecified; E11.42 Type 2 diabetes mellitus with diabetic polyneuropathy; K21.9 Gastro-esophageal reflux disease without esophagitis; M79.7 Fibromyalgia; G89.4 Chronic pain syndrome; T40.2X5A Adverse effect of other opioids, initial encounter; E11.65 Type 2 diabetes mellitus with hyperglycemia; Z79.84 Long term (current) use of oral hypoglycemic drugs; Z79.82 Long term (current) use of aspirin; Z79.891 Long term (current) use of opiate analgesic; Z79.899 Other long term (current) drug therapy
CPT/HCPCS: 36600; 71010; 80048; 80053; 81001; 82330; 82570; 82803; 82805; 82947; 82962; 83735; 83880; 84100; 84132; 84295; 84300; 85014; 85018; 85025; 87040; 87077; 87086; 87186; 87641; 88300; 88304; 88311; 93005; 94640; 94660; 97116-GP; 97161-GP; A9270-GY; C1713; G8978-CJ-GP; G8979-CH-GP; J0690; J1170; J2250; J2310; J2405; J2710; J3010; P9047